=== PATIENT | male | born 1975 | race Caucasian/White ===

== ENCOUNTER 2016-08-22 20:42 | Emergency (ER) | payer MEDICAID ==
[~2016-08-22] VITALS: Ht 172.7 cm; Wt 76.3 kg
[~2016-08-22 20:42] MED LIST: ALBU2.5V13 IH; HYDR28OI2 TP
[2016-08-22 23:55] VITALS: BP 103/79
[2016-08-28] MEDS ORDERED: TC025U80 TOP (13:33)
== END 2016-08-22 23:55 | disposition home or self-care (01) ==
LOC: ER 22:08
DX: J45.901 Unspecified asthma with (acute) exacerbation (principal); Z79.899 Other long term (current) drug therapy
CPT/HCPCS: 99283

== ENCOUNTER 2017-10-07 10:44 | Emergency (ER) | payer MEDICAID ==
[~2017-10-07] VITALS: Ht 172.7 cm; Wt 77.6 kg
[~2017-10-07 10:44] MED LIST changes: +TC025U80 TOP
[2017-10-07 11:20] VITALS: BP 118/82
== END 2017-10-07 12:30 | disposition home or self-care (01) ==
LOC: ER 10:50
DX: J02.9 Acute pharyngitis, unspecified (principal)
CPT/HCPCS: 99282